=== PATIENT | female | born 1980 | race Native Hawaiian/Other Pacific Islander ===

== ENCOUNTER 2022-06-23 06:37 | Emergency (ER) | payer MEDICAID ==
[2022-06-23 07:37] VITALS: BP 119/80
[2022-06-23] MEDS ORDERED: BENZONATATE 100 MG CAP PO ONE (10:08)
[2022-06-23] MEDS ORDERED: dexAMETHasone 4 MG/ML VIAL PO ONE (10:08)
[2022-06-23] MEDS ORDERED: ACETAMINOPHEN W/CODEINE 300-30 MG TAB PO ONE (10:08)
[2022-06-23] MEDS ORDERED: KETOROLAC 10 MG TAB PO ONE (10:08)
--- NOTE | 2022-06-23 10:33 | XRay Report ---
CHEST 2 VIEWS INDICATION / CLINICAL INFORMATION: fever, sob, congestion. COMPARISON: 01/28/11 FINDINGS: SUPPORT DEVICES: None. HEART / MEDIASTINUM: No significant abnormality. LUNGS / PLEURA: No significant pulmonary or pleural abnormality. No pneumothorax. ADDITIONAL FINDINGS: No significant additional findings. IMPRESSION: 1. No acute findings. Signer Name: Kimberli Marcos MD Signed: 06/23/2022 10:29 AM Workstation Name: [id number]
--- NOTE | 2022-06-23 11:04 | Emergency Department Report ---
ED ENT HPI - General Chief complaint: Sore Throat Stated complaint: COLD SX/FEVER Time Seen by Provider: 06/23/22 09:55 Source: patient Mode of arrival: Ambulatory Limitations: No Limitations - History of Present Illness Initial comments: 41-year-old black female with no past medical history presents to the emergency department for evaluation of 5-day history of intermittent fever, body aches, cough, congestion, nausea, vomiting, sore throat, and intermittent shortness of breath. She states that body aches are 7 out of 10. She denies any sick cont acts. MD complaint: sore throat, other (Fever, nausea, vomiting, body aches, cough) -: Gradual, days(s) (5) Severity: moderate Severity scale (0 -10): 7 Quality: aching Consistency: constant Associated Symptoms: fever, cough, sore throat, rhinorrhea. denies: gum swelling, toothache, pain with swallowing, tinnitus, hearing loss, discharge from ear - Related Data Previous Rx's Medication Instructions Recorded Last Taken Type Butalb/Acetamin/Caff 50-325-40 1 each PO Q4H PRN #10 tablet 03/08/14 Unknown Rx [Fioricet] HYDROcodone/APAP 5-325 [Malcolm 1 each PO Q6HR PRN #10 tablet 03/08/14 Unknown Rx 5-325 mg TAB] Penicillin Vk [Veetids TAB] 2 tab PO BID #40 tablet 03/08/14 Unknown Rx Penicillin Vk [Veetids TAB] 500 mg PO QID #56 tablet 06/11/16 Unknown Rx Benzonatate [Tessalon Perles] 100 mg PO Q8HR PRN #30 cap 06/23/22 Unknown Rx Ondansetron [Zofran Odt] 4 mg PO Q8HR PRN #12 tab.rapdis 06/23/22 Unknown Rx guaiFENesin/CODEINE [Robitussin AC] 10 ml PO TID PRN #120 ml 06/23/22 Unknown Rx Allergies Allergy/AdvReac Type Severity Reaction Status Date / Time No Known Allergies Allergy Verified 06/23/22 07:37 ED Dental HPI - General Chief complaint: Sore Throat Stated complaint: COLD SX/FEVER Time Seen by Provider: 06/23/22 09:55 Source: patient Mode of arrival: Ambulatory Limitations: No Limitations - Related Data Previous Rx's Medication Instructions Recorded Last Taken Type Butalb/Acetamin/Caff 50-325-40 1 each PO Q4H PRN #10 tablet 03/08/14 Unknown Rx [Fioricet] HYDROcodone/APAP 5-325 [Malcolm 1 each PO Q6HR PRN #10 tablet 03/08/14 Unknown Rx 5-325 mg TAB] Penicillin Vk [Veetids TAB] 2 tab PO BID #40 tablet 03/08/14 Unknown Rx Penicillin Vk [Veetids TAB] 500 mg PO QID #56 tablet 06/11/16 Unknown Rx Benzonatate [Tessalon Perles] 100 mg PO Q8HR PRN #30 cap 06/23/22 Unknown Rx Ondansetron [Zofran Odt] 4 mg PO Q8HR PRN #12 tab.rapdis 06/23/22 Unknown Rx guaiFENesin/CODEINE [Robitussin AC] 10 ml PO TID PRN #120 ml 06/23/22 Unknown Rx Allergies Allergy/AdvReac Type Severity Reaction Status Date / Time No Known Allergies Allergy Verified 06/23/22 07:37 ED Review of Systems ROS: Stated complaint: COLD SX/FEVER Other details as noted in HPI Comment: All other systems reviewed and negative Constitutional: denies: chills, fever Eyes: denies: eye pain, vision change ENT: throat pain, congestion Respiratory: cough, shortness of breath. denies: orthopnea, SOB with exertion, SOB at rest, stridor, wheezing Cardiovascular: denies: chest pain, palpitations Gastrointestinal: nausea, vomiting. denies: abdominal pain, diarrhea, hematemesis, melena, hematochezia Genitourinary: denies: urgency, dysuria Musculoskeletal: denies: back pain Neurological: headache. denies: weakness, numbness, paresthesias, confusion, abnormal gait ED Past Medical Hx - Social History Smoking Status: Unknown if ever smoked - Medications Home Medications: Home Medications Medication Instructions Recorded Confirmed Last Taken Type Butalb/Acetamin/Caff 50-325-40 1 each PO Q4H PRN #10 tablet 03/08/14 Unknown Rx [Fioricet] HYDROcodone/APAP 5-325 [Malcolm 1 each PO Q6HR PRN #10 tablet 03/08/14 Unknown Rx 5-325 mg TAB] Penicillin Vk [Veetids TAB] 2 tab PO BID #40 tablet 03/08/14 Unknown Rx Penicillin Vk [Veetids TAB] 500 mg PO QID #56 tablet 06/11/16 Unknown Rx Benzonatate [Tessalon Perles] 100 mg PO Q8HR PRN #30 cap 06/23/22 Unknown Rx Ondansetron [Zofran Odt] 4 mg PO Q8HR PRN #12 tab.rapdis 06/23/22 Unknown Rx guaiFENesin/CODEINE [Robitussin AC] 10 ml PO TID PRN #120 ml 06/23/22 Unknown Rx ED Physical Exam - General Limitations: No Limitations General appearance: alert, in no apparent distress - Head Head exam: Present: atraumatic, normocephalic - Eye Eye exam: Present: normal appearance. Absent: PERRL, conjunctival injection, periorbital swelling, periorbital tenderness - ENT ENT exam: Present: TM's normal bilaterally. Absent: normal exam (Bilateral nasal mucosal edema), normal orophraynx (Erythema noted to posterior oropharynx) - Expanded ENT Exam Expanded Throat exam: Negative: tonsillar erythema, tonsillomegaly, tonsillar exudate, R peritonsillar mass, L peritonsillar mass - Neck Neck exam: Present: normal inspection, full ROM. Absent: tenderness, lymphadenopathy - Respiratory Respiratory exam: Present: normal lung sounds bilaterally. Absent: respiratory distress, wheezes, rales, rhonchi, stridor, chest wall tenderness - Cardiovascular Cardiovascular Exam: Present: tachycardia, normal heart sounds - GI/Abdominal GI/Abdominal exam: Present: soft, normal bowel sounds. Absent: distended, tenderness, guarding, rebound, rigid - Extremities Exam Extremities exam: Present: normal inspection, full ROM, normal capillary refill. Absent: pedal edema, joint swelling, calf tenderness - Back Exam Back exam: Present: normal inspection. Absent: CVA tenderness (R), CVA tenderness (L), vertebral tenderness - Neurological Exam Neurological exam: Present: alert, oriented X3, normal gait - Psychiatric Psychiatric exam: Present: normal affect, normal mood - Skin Skin exam: Present: warm, dry, intact, normal color ED Course Vital Signs 06/23/22 07:32 Temperature 98.4 F Pulse Rate 112 H Respiratory 16 Rate Blood Pressure 119/80 [Right] O2 Sat by Pulse 99 Oximetry ED Medical Decision Making - Radiology Data Radiology results: report reviewed, image reviewed Chest x-ray: FINDINGS: SUPPORT DEVICES: None. HEART / MEDIASTINUM: No significant abnormality. LUNGS / PLEURA: No significant pulmonary or pleural abnormality. No pneumothorax. ADDITIONAL FINDINGS: No significant additional findings. IMPRESSION: 1. No acute findings. - Medical Decision Making 41-year-old black female with no past medical history presents to the emergency department for evaluation of 5-day history of intermittent fever, body aches, cough, congestion, nausea, vomiting, sore throat, and intermittent shortness of breath. She states that body aches are 7 out of 10. She denies any sick contacts. Chest x-ray without any acute abnormalities noted. Symptoms improved after medication. Patient be discharged home with Robitussin-AC, Tessalon Perles, and Zofran to use as directed. She is advised to follow-up with her primary care provider if no improvement or worsening symptoms and return to the emergency department as needed. She verbalizes understanding of and agreement with plan of care. Critical care attestation.: If time is entered above; I have spent that time in minutes in the direct care of this critically ill patient, excluding procedure time. ED Disposition Clinical Impression: Viral syndrome Disposition: 01 HOME / SELF CARE / HOMELESS Is pt being admited?: No Does the pt Need Aspirin: No Condition: Stable Instructions: Viral Respiratory Infection, [id number], Viral Illness, Adult Additional Instructions: Take medications as prescribed. Follow-up with your primary care provider if no improvement or worsening symptoms. Return to the emergency department as needed. Prescriptions: guaiFENesin/CODEINE [Robitussin AC] 10 ml PO TID PRN #120 ml PRN Reason: Cough Benzonatate [Tessalon Perles] 100 mg PO Q8HR PRN #30 cap PRN Reason: Cough Ondansetron [Zofran Odt] 4 mg PO Q8HR PRN #12 tab.rapdis PRN Reason: Nausea And Vomiting Referrals: JENNIFER BARNETT MD [Staff Physician] - 3-5 Days Forms: Work/School Release Form(ED) Time of Disposition: 11:04
== END 2022-06-23 11:24 | disposition home or self-care (01) ==
LOC: ED 06:37
DX: B34.9 Viral infection, unspecified (principal); J02.9 Acute pharyngitis, unspecified; R50.9 Fever, unspecified; M79.18 Myalgia, other site; R05.9 Cough, unspecified; Z79.899 Other long term (current) drug therapy
CPT/HCPCS: 71046; 99283; J1100